=== PATIENT | male | born 1940 | race Caucasian/White ===

== ENCOUNTER 2023-05-25 14:18 | Inpatient (IN) | payer MEDICARE, BC ==
[~2023-05-25] VITALS: Ht 170.2 cm; Wt 66.8 kg
[2023-05-25 15:52] VITALS: BP 160/76
[2023-05-25] MEDS ORDERED: TYLENOL 325MG325 MG PO (17:26)
[2023-05-25] MEDS ORDERED: AMIODARONE HCL400 MG PO (17:28)
[2023-05-25] MEDS ORDERED: ELIQUIS5 MG PO (17:28)
[2023-05-25] MEDS ORDERED: ST. JOSEPH ASPI81 MG PO (17:28)
[2023-05-25] MEDS ORDERED: ZETIA10 M1 PO (17:30)
[2023-05-25] MEDS ORDERED: SYNTHROID0.075 MG PO (17:31)
[2023-05-25] MEDS ORDERED: PROTONIX TR40 M1 PO (17:32)
[2023-05-25] MEDS ORDERED: MELATIN 3 MG-11 TAB PO ×2 (17:32→17:33)
[2023-05-25] MEDS ORDERED: COMPAZINE10 M2 PO (17:33)
[2023-05-25] MEDS ORDERED: SEROQUEL 2525 MG/TAB PO (17:34)
[2023-05-25] MEDS ORDERED: ZOCOR40 M1 PO (17:35)
[2023-05-25] MEDS ORDERED: CARAFATE S1 GM/10 ML PO (17:39)
[2023-05-25] MEDS ORDERED: THIAMINE HCL100 M1 PO (17:39)
[2023-05-25] MEDS ORDERED: ROXICODONE 55 MG/TAB PO (17:40)
[2023-05-26 06:14] VITALS: BP 160/82
[2023-05-26 07:34] LABS: EOS # 0.01 K/mm3 (0.04-0.40); EOS % 0.1 % (0.0-4.0); HEMATOCRIT 38.2 % (42.0-52.0); LYMPH# 1.62 K/mm3 (1.50-4.00); MEAN CELL VOLUME 97 fl (78-100); MEAN CORPUSCULAR HEMOGLOBIN 30 pg (27-31); MEAN CORPUSCULAR HGB CONC 31 g/dL (33-37); MEAN PLATELET VOLUME 9.8 fl (7.4-10.4); MONO # 1.01 K/mm3 (0.20-0.80); NEU # 11.37 K/mm3 (1.40-6.50); PLATELET COUNT 574 K/mm3 (130-400); RED BLOOD COUNT 3.95 M/mm3 (4.20-5.60); RED CELL DISTRIBUTION WIDTH 17.3 % (11.5-14.5); WHITE BLOOD COUNT 15.1 K/mm3 (4.8-10.8)
[2023-05-26 07:41] LABS: ALBUMIN 3.3 g/dL (3.4-4.8)
[2023-05-26 07:43] LABS: CALCIUM 9.1 mg/dL (8.3-10.5)
[2023-05-26 07:44] LABS: TOTAL PROTEIN 6.8 g/dL (6.2-8.1)
[2023-05-26 07:46] LABS: TOTAL BILIRUBIN 0.4 mg/dL (0.2-1.2)
[2023-05-26 08:07] LABS: PH-URINE 7.5 (5.0 - 8.0); URINE APPEARANCE SLIGHTLY CLOUDY (CLEAR); URINE COLOR YELLOW (YELLOW)
[2023-05-26 08:08] LABS: URINE BILIRUBIN NEGATIVE (NEGATIVE); URINE BLOOD 2+ (NEGATIVE); URINE GLUCOSE NEGATIVE (NEGATIVE); URINE KETONE NEGATIVE (NEGATIVE); URINE LEUKOCYTE ESTERASE NEGATIVE (NEGATIVE); URINE NITRATE NEGATIVE (NEGATIVE); URINE PROTEIN(semi-quant) NEGATIVE (NEGATIVE); URINE WBC 0-1 /hpf (0-3)
[2023-05-26 18:46] VITALS: BP 158/73
[2023-05-27 05:45] VITALS: BP 158/76
[2023-05-27 17:29] VITALS: BP 170/70
[2023-05-28 05:57] VITALS: BP 167/88
[2023-05-28 18:01] VITALS: BP 151/68
[2023-05-29 06:04] VITALS: BP 158/68
[2023-05-29 17:14] VITALS: BP 152/71
[2023-05-30 06:11] VITALS: BP 144/74
[2023-05-30 08:05] LABS: ALBUMIN 3.7 g/dL (3.4-4.8)
[2023-05-30 08:07] LABS: CALCIUM 9.1 mg/dL (8.3-10.5)
[2023-05-30 08:08] LABS: TOTAL PROTEIN 7.1 g/dL (6.2-8.1)
[2023-05-30 08:10] LABS: TOTAL BILIRUBIN 0.6 mg/dL (0.2-1.2)
[2023-05-30 08:14] LABS: MAGNESIUM 2.45 mg/dL (1.60-2.60)
[2023-05-30 17:26] VITALS: BP 136/80
[2023-05-30 20:36] VITALS: BP 148/89
[2023-05-31 05:39] VITALS: BP 174/84
[2023-05-31 17:58] VITALS: BP 142/70
[2023-06-01 05:30] VITALS: BP 179/68
[2023-06-01 07:12] LABS: BASO # 0.01 K/mm3 (0.02-0.10); HEMATOCRIT 36.7 % (42.0-52.0); HEMOGLOBIN 11.7 g/dL (13.5-18.0); LYMPH# 0.78 K/mm3 (1.50-4.00); MEAN CELL VOLUME 94 fl (78-100); MEAN CORPUSCULAR HEMOGLOBIN 30 pg (27-31); MEAN CORPUSCULAR HGB CONC 32 g/dL (33-37); MEAN PLATELET VOLUME 10.1 fl (7.4-10.4); MONO # 1.17 K/mm3 (0.20-0.80); NEU # 12.74 K/mm3 (1.40-6.50); PLATELET COUNT 325 K/mm3 (130-400); RED BLOOD COUNT 3.89 M/mm3 (4.20-5.60); RED CELL DISTRIBUTION WIDTH 16.3 % (11.5-14.5)
[2023-06-01 07:15] LABS: ALBUMIN 3.2 g/dL (3.4-4.8)
[2023-06-01 07:17] LABS: CALCIUM 8.2 mg/dL (8.3-10.5)
[2023-06-01 07:18] LABS: TOTAL PROTEIN 5.8 g/dL (6.2-8.1)
[2023-06-01 07:20] LABS: TOTAL BILIRUBIN 0.4 mg/dL (0.2-1.2)
[2023-06-01 17:12] VITALS: BP 139/69
[2023-06-02 05:57] VITALS: BP 160/77
[2023-06-02 14:45] VITALS: BP 144/63
[2023-06-03 05:45] VITALS: BP 147/74
[2023-06-03 17:40] VITALS: BP 137/73
[2023-06-04 05:49] VITALS: BP 164/79
[2023-06-04 17:15] VITALS: BP 153/79
[2023-06-05 06:09] VITALS: BP 164/69
[2023-06-05 17:21] VITALS: BP 172/73
[2023-06-06 05:47] VITALS: BP 143/71
[2023-06-06 08:02] LABS: ALBUMIN 3.1 g/dL (3.4-4.8)
[2023-06-06 08:03] LABS: CALCIUM 8.2 mg/dL (8.3-10.5)
[2023-06-06 08:05] LABS: TOTAL PROTEIN 5.6 g/dL (6.2-8.1)
[2023-06-06 08:07] LABS: TOTAL BILIRUBIN 0.36 mg/dL (0.2-1.2)
[2023-06-06 08:35] LABS: MAGNESIUM 2.02 mg/dL (1.60-2.60)
[2023-06-06 17:41] VITALS: BP 153/72
[2023-06-07 05:47] VITALS: BP 152/77
[2023-06-07] MEDS ORDERED: IPRATROPIUM BROM3 M1 IH (12:30)
[2023-06-07] MEDS ORDERED: PERFOROMIS20 MCG/21 IH (12:32)
[2023-06-07] MEDS ORDERED: OXYCODONE HCL10 M1 PO (12:33)
[2023-06-07] MEDS ORDERED: ATIVAN1 M1 PO (12:35)
[2023-06-07] MEDS ORDERED: PULMICORT0.5 MG/2 M IH (12:36)
[2023-06-07] MEDS ORDERED: NOVOLOG FLEX100 U/ML SQ (12:38)
[2023-06-07] MEDS ORDERED: GLUCAGEN DIAGNOS1 MG IM (12:39)
[2023-06-07 12:53] VITALS: BP_SYST 170.2
== END 2023-06-07 18:16 | disposition hospice, inpatient (51) | DRG 947 ==
LOC: MED/SURG 14:18
PROVIDERS: Internal Medicine; Nurse Practitioner; Physician Assistant; ADMIT Family Medicine
DX: R53.81 Other malaise (principal); J18.9 Pneumonia, unspecified organism; C15.9 Malignant neoplasm of esophagus, unspecified; E46 Unspecified protein-calorie malnutrition; C73 Malignant neoplasm of thyroid gland; K14.9 Disease of tongue, unspecified; I48.91 Unspecified atrial fibrillation; K21.9 Gastro-esophageal reflux disease without esophagitis; E03.9 Hypothyroidism, unspecified; R13.10 Dysphagia, unspecified; G89.29 Other chronic pain; E78.5 Hyperlipidemia, unspecified; Z68.24 Body mass index [BMI] 24.0-24.9, adult; G47.00 Insomnia, unspecified; Z79.82 Long term (current) use of aspirin; Z79.01 Long term (current) use of anticoagulants; Z79.891 Long term (current) use of opiate analgesic; Z90.49 Acquired absence of other specified parts of digestive tract; Z87.891 Personal history of nicotine dependence
CPT/HCPCS: C9113; J0692; J1815; J1885; J2060; J2270; J2765; J7030